=== PATIENT | female | born 1975 | race Caucasian/White ===

== ENCOUNTER 2017-06-08 19:53 | Emergency (ER) | payer SELFPAY ==
[~2017-06-08] VITALS: Ht 157.5 cm; Wt 61.4 kg
[~2017-06-08 19:53] MED LIST: FLEXERIL5 MG PO; NORCO 325 MG-51 TAB PO
[2017-06-08] MEDS ORDERED: PEN-VEE K500 MG PO (20:38)
[2017-06-08 20:46] VITALS: BP 132/77; PULSE 104; TEMP 98.8
== END 2017-06-08 20:46 | disposition home or self-care (01) ==
LOC: COL.ER 19:53
DX: K08.89 Other specified disorders of teeth and supporting structures (principal); F17.210 Nicotine dependence, cigarettes, uncomplicated; F12.90 Cannabis use, unspecified, uncomplicated

== ENCOUNTER → 2019-11-21 | Outpatient (CLI) | payer BC ==
[~2019-11-21] MED LIST changes: +PEN-VEE K500 MG PO
== END ==
LOC: MC.RAD 11:25
DX: Z12.31 Encounter for screening mammogram for malignant neoplasm of breast (principal); N63.11 Unspecified lump in the right breast, upper outer quadrant

== ENCOUNTER → 2019-11-30 | Outpatient (CLI) | payer BC | LOC: MC.RAD 10:49 | DX: N63.10 Unspecified lump in the right breast, unspecified quadrant (principal) ==